=== PATIENT | female | born 2000 | race Hispanic/Latino ===

== ENCOUNTER 2018-07-12 18:07 | Emergency (ER) | payer OTHER ==
[2018-07-12 18:41] LABS: #Basophils 0.1 thou/uL (0.0-0.2); #Lymphocytes 0.9 thou/uL (1.20-3.40); #Monocytes 0.3 thou/uL (0.11-0.59); #Neutrophils 6.1 thou/uL (1.40-6.50); %Basophils 0.9 % (0.0-1.0); %Eosinophils 0.4 % (0.0-10.0); %Lymphocytes 11.8 % (28.0-48.0); %Monocytes 4.4 % (0.0-4.0); %Neutrophils 82.5 % (31.0-61.0); Hemoglobin 14.5 g/dL (12.0-16.0); Mean Corpuscular HGB CONC 34.5 g/dL (32.0-36.0); Mean Corpuscular Volume 89.8 fL (78.0-98.0); Mean Platelet Volume 6.2 fL (7.4-10.4); Platelet Count 291 thou/uL (130-400); RBC Distribution Width 10.9 % (11.5-14.5); Red Blood Cell (RBC) Count 4.66 mill/uL (4.00-5.20); White Blood Cell (WBC) Count 7.4 thou/uL (4.8-10.8)
[2018-07-12] MEDS ORDERED: Adacel (T-DAP) 0.5 ML VIAL ONE (18:56)
[2018-07-12 18:58] LABS: ALT (SGPT) 19 U/L (8-55); AST (SGOT) 15 U/L (5-34); Albumin 4.5 g/dL (3.5-5.0); Alkaline Phosphatase 80 U/L (40-150); Anion Gap 13 mmol/L (10-20); BUN (Urea Nitrogen) 15 mg/dL (7.0-18.7); Bilirubin, Total 1.1 mg/dL (0.2-1.2); Calc. Creatinine Clearance 0 mL/min (70-130); Calcium 9.3 mg/dL (7.8-10.44); Carbon Dioxide 21 mmol/L (22-29); Chloride 107 mmol/L (98-107); Estimated GFR-MDRD 89; Globulin 2.9 g/dL (2.4-3.5); Glucose 101 mg/dL (70-105); Potassium 3.7 mmol/L (3.5-5.1); Protein, Total 7.4 g/dL (6.0-8.3); Sodium 137 mmol/L (136-145)
[2018-07-12 19:55] LABS: Medtox Reader # READER 1; Methamphetamine Not Detected (NotDetected); Opiate Screen Not Detected (NotDetected); Phencyclidine (PCP) Not Detected (NotDetected); THC/Cannabinoid Screen Detected (NotDetected)
[2018-07-12 19:56] LABS: Amphetamine Not Detected (NotDetected); Barbiturates Screen Not Detected (NotDetected); Benzodiazepine Screen Not Detected (NotDetected); Cocaine Metabolite Screen Not Detected (NotDetected); Medtox Control Line Valid? VALID (VALID); Methadone Not Detected (NotDetected); Oxycodone Screen Not Detected (NotDetected); Tricyclic Screen Not Detected (NotDetected)
[2018-07-12 20:16] LABS: Bilirubin Small (Negative); Blood, Urine Negative (Negative); Clarity CLOUDY (Clear); Glucose, Urine (Dipstick) Negative (Negative); Leukocyte Small (Negative); Nitrite Negative (Negative); Protein, Urine (Dipstick) 30 mg/dL (Neg-Trace)
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
[2018-07-12 20:17] LABS: Bacteria/HPF None Seen HPF (None Seen); RBC/HPF 0-3 HPF (0-3)
[2018-07-12 20:18] LABS: Pathc Cast-AUWi Flag 13.08 (0-2.49)
[2018-07-12 20:19] LABS: Hyaline Casts/LPF 0-3 HYALINE CAST LPF (0-3 Hyaline); Manual Microscopic Reviewed? No Path Casts Seen; Renal Epithelial None Seen HPF (0-3); Transitional Epithelial NONE SEEN HPF (0-3)
== END 2018-07-12 21:04 ==
LOC: ERS 18:07
DX: S01.01XA Laceration without foreign body of scalp, initial encounter (principal); F90.9 Attention-deficit hyperactivity disorder, unspecified type; F42.9 Obsessive-compulsive disorder, unspecified; F17.210 Nicotine dependence, cigarettes, uncomplicated; W22.8XXA Striking against or struck by other objects, initial encounter
CPT/HCPCS: 12001; 36415; 51701; 70450; 80053; 80306; 81003; 81015; 84146; 85025; 87077; 87086; 90471; 90715; 93005; A4353

== ENCOUNTER 2019-09-15 20:14 | Emergency (ER) | payer OTHER ==
--- NOTE | 2019-09-15 20:41 | RAD ---
EXAM: XR Ankle Rt 3 View STANDARD PROVIDED CLINICAL HISTORY: Pain FINDINGS: There is no evidence for fracture or other acute osseous abnormality. Alignment appears anatomic. Kat nt spaces appear preserved. IMPRESSION: No evidence for an acute osseous abnormality. If there is persistent clinical concern, conservative m anagement and follow-up imaging advised.
== END 2019-09-15 21:36 | disposition home or self-care (01) ==
LOC: ERS 20:14
DX: S93.401A Sprain of unspecified ligament of right ankle, initial encounter (principal); F17.210 Nicotine dependence, cigarettes, uncomplicated; F31.9 Bipolar disorder, unspecified; F90.9 Attention-deficit hyperactivity disorder, unspecified type; F42.9 Obsessive-compulsive disorder, unspecified; X50.1XXA Overexertion from prolonged static or awkward postures, initial encounter

== ENCOUNTER 2020-04-15 03:15 | Emergency (ER) | payer OTHER ==
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
== END 2020-04-15 05:58 | disposition home or self-care (01) ==
LOC: EEVIPCON 03:15 → ERS 03:15
DX: S61.253A Open bite of left middle finger without damage to nail, initial encounter (principal); S09.22XA Traumatic rupture of left ear drum, initial encounter; F41.9 Anxiety disorder, unspecified; F90.9 Attention-deficit hyperactivity disorder, unspecified type; F42.9 Obsessive-compulsive disorder, unspecified; Z87.891 Personal history of nicotine dependence; Y04.1XXA Assault by human bite, initial encounter
CPT/HCPCS: 71046

== ENCOUNTER 2020-12-27 16:32 | Emergency (ER) | payer OTHER | END 2020-12-27 17:20 | disposition home or self-care (01) | LOC: ERS 16:32 → EEVIPCON 16:32 → ERS 17:20 | DX: F44.5 Conversion disorder with seizures or convulsions (principal); R45.1 Restlessness and agitation | CPT/HCPCS: 99283 ==

== ENCOUNTER 2021-05-05 14:16 | Emergency (ER) | payer OTHER ==
[2021-05-05] MEDS ORDERED: Fluorescein Opthalmic Strip ONE (15:59)
[2021-05-05] MEDS ORDERED: Proparacaine 0.5% Opth 15 ML BOT ONE (16:00)
== END 2021-05-05 16:21 | disposition home or self-care (01) ==
LOC: ERS 14:16
DX: H18.821 Corneal disorder due to contact lens, right eye (principal); F17.210 Nicotine dependence, cigarettes, uncomplicated
CPT/HCPCS: 99283

== ENCOUNTER 2021-08-20 12:16 | Emergency (ER) | payer MEDICAID, OTHER, SELFPAY | END 2021-08-20 15:32 | disposition home or self-care (01) | LOC: ERS 12:16 | DX: R11.0 Nausea (principal); F17.210 Nicotine dependence, cigarettes, uncomplicated | CPT/HCPCS: 99283 ==

== ENCOUNTER 2021-09-12 17:56 | Emergency (ER) | payer MEDICAID | END 2021-09-12 19:55 | disposition home or self-care (01) | LOC: ERS 17:56 | DX: T78.40XA Allergy, unspecified, initial encounter (principal); F17.290 Nicotine dependence, other tobacco product, uncomplicated | CPT/HCPCS: 99283 ==